=== PATIENT | male | born 1950 | race Caucasian/White ===

== ENCOUNTER 2017-07-21 16:40 | Emergency (ER) | payer MEDICARE, BC ==
--- NOTE | 2017-07-21 18:45 | US ---
Right lower extremity deep venous ultrasound: Duplex and color flow imaging was obtained of the right common femoral, proximal greater saphenous, superficial femoral, popliteal, posterior tibial and peroneal veins. Findings: Slight subcutaneous edema is noted within the right ankle. There is an elongated heterogeneous area within the calf slightly distal to the knee. This most likely represents a small intramuscular hematoma. Deep veins show normal phasic flow, augmentation and compression. Impression: 1. No evidence of deep venous thrombosis within the right lower extremity. 2. Elongated heterogeneous area within the upper calf most likely representing intramuscular hematoma. If this does not correlate clinically, MRI could be considered. 3. Mild subcutaneous edema within the ankle. Diagnostic code #3
--- NOTE | 2017-07-21 18:48 | EDM.PDOC ---
ED HPI GENERAL MEDICAL PROBLEM - General Chief Complaint: Lower Extremity Injury/Pain Stated Complaint: RIGHT LEG SWELLING Time Seen by Provider: 07/21/17 16:59 Source of Information: Reports: Patient, RN Notes Reviewed - History of Present Illness INITIAL COMMENTS - FREE TEXT/NARRATIVE: 66-year-old male presents with right lower leg swelling and discomfort. He fell injuring his right knee several weeks ago. He then had a trip to [place] [place] [facility] for a wedding. He did follow-up at the clinic after getting back from [facility], had x- rays of his knee about a week ago which did not show any fracture. He was given a knee brace. The pain is gotten better but now he has quite severe swelling of the lower leg, pain posterior calf with ambulation. He states the swellingstill was much worse yesterday and the day before but still quite marketed. 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: Reports: Other (see below) Other 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: aspirin daily Right Leg Pain Score (Numeric/FACES): 8 - Related Data Allergies Allergy/AdvReac Type Severity Reaction Status Date / Time bupropion [From Wellbutrin] Allergy Hives Verified 07/21/17 16:54 Home Meds: Home Meds Albuterol [Ventolin HFA] 2 puff INH BID 07/21/17 [History] Aspirin [Low Dose Aspirin EC] 81 mg PO DAILY 07/21/17 [History] Cholecalciferol (Vitamin D3) [Vitamin D3] 2,000 unit PO DAILY 07/21/17 [History] Clopidogrel Bisulfate [Plavix] 75 mg PO DAILY 07/21/17 [History] Metoprolol Succinate 50 mg PO DAILY 07/21/17 [History] Protandim. 1 tab PO DAILY 07/21/17 [History] Rosuvastatin [Crestor] 40 mg PO DAILY 07/21/17 [History] Ubidecarenone [Co Q-10] 200 mg PO DAILY 07/21/17 [History] Past Medical History - Past Health History Medical/Surgical History: Denies Medical/Surgical History Cardiovascular History: Reports: High Cholesterol, Hypertension, [place], Stents Respiratory History: Reports: Other (See Below) Other Respiratory History: emphysema Genitourinary History: Reports: Renal Calculus Musculoskeletal History: Reports: Other (See Below) Other Musculoskeletal History: back surgery for stenosis Oncologic (Cancer) History: Reports: Other (See Below) Other Oncologic History: kidney cancer withh 2/3 of right kidney removed - Past Surgical History Cardiovascular Surgical History: Reports: Coronary Artery Stent Social & Family History - Tobacco Use Smoking Status *Q: Current Every Day Smoker Years of Tobacco use: 40 Packs/Tins Daily: 1 Used Tobacco, but Quit: No Second Hand Smoke Exposure: No - Caffeine Use Caffeine Use: Reports: Soda - Alcohol Use Days Per Week of Alcohol Use: 1 Number of Drinks Per Day: 0 Total Drinks Per Week: 0 - Recreational Drug Use Recreational Drug Use: No - Living Situation & Occupation Living situation: Reports: Occupation: Employed Review of Systems - Review of Systems Review Of Systems: See Below Mouth/Throat: Reports: No Symptoms Respiratory: Denies: Shortness of Breath, Pleuritic Chest Pain Cardiovascular: Denies: Chest Pain GI/Abdominal: Denies: Abdominal Pain Musculoskeletal: Reports: Leg Pain (Pain right posterior calf muscle area), Other (Severe swelling of right lower leg 3 days ago now somewhat better but still swollen) Skin: Denies: Bruising, Erythema Neurological: Denies: Numbness, Tingling, Weakness ED EXAM, GENERAL - Physical Exam Exam: See Below General Appearance: Alert, No Apparent Distress Head: Atraumatic Neck: Supple Respiratory/Chest: No Respiratory Distress, Lungs Clear, Normal Breath Sounds Cardiovascular: Regular Rate, Rhythm Extremities: Pedal Edema (Moderate swelling of right lower leg), Leg Pain ( There is mild to moderate tenderness of the right posterior calf and also posterior to the right knee), Other (Right knee is without swelling or tenderness at this time, no effusion). No: Increased Warmth, Redness Neurological: Alert, No Motor/Sensory Deficits Course - Vital Signs Last Recorded V/S: Last Vital Signs Temp 98.7 F 07/21/17 16:46 Pulse 74 07/21/17 16:46 Resp 20 07/21/17 16:46 BP 189/97 H 07/21/17 16:46 Pulse Ox 99 07/21/17 16:46 - Re-Assessments/Exams Free Text/Narrative Re-Assessment/Exam: 07/21/17 19:22, ultrasound the leg is negative for DVT, there is fluid present, see Radiology report for details. Departure - Departure Time of Disposition: 19:15 Disposition: Home, Self-Care 01 Condition: Fair Clinical Impression: Leg edema, right - Discharge Information Instructions: Edema, [id number] Referrals: Em Meadows PA-C [Primary Care Provider] - Forms: ED Department Discharge Additional Instructions: Keven wrap right leg, elevate as much as possible over the next 3-4 days with leg well above your waist as discussed until swelling has completely resolved, you may even work with some intermittent ice packs tonight and tomorrow evening as able. Also exercise calf muscle when your leg is elevated as discussed to help work the fluid down out of your leg. Follow-up clinic if not much better within 3-4 days as expected, return to ED as needed if symptoms worsening in any way.
== END 2017-07-21 19:20 | disposition home or self-care (01) ==
LOC: JD.ED 16:40
DX: R22.41 Localized swelling, mass and lump, right lower limb (principal); E78.00 Pure hypercholesterolemia, unspecified; I10 Essential (primary) hypertension; I25.2 Old myocardial infarction; F17.210 Nicotine dependence, cigarettes, uncomplicated; Z88.8 Allergy status to other drugs, medicaments and biological substances; Z79.82 Long term (current) use of aspirin; Z79.899 Other long term (current) drug therapy
CPT/HCPCS: 93971-26-RT; 93971-RT; 99283; 99284-25

== ENCOUNTER 2019-12-06 07:00 | Day surgery (SDC) | payer MEDICARE, BC ==
[~2019-12-06 07:00] MED LIST: Albuterol 0.083% 2.5 MG/3 ML Neb Soln NEB SCH; Lactated Ringers 1,000 ML IV SCH; Lidocaine 1%/Sod Bicarbonate in NS 8.4% 1 ML Syringe IDERM PRN; Sodium Chloride 0.9% 10 ML Syringe FLUSH PRN
[2019-12-06] MEDS ORDERED: Propofol 200 MG/20 ML SDV ONE (07:22)
[2019-12-06] MEDS ORDERED: Lidocaine 1% 4 ML ONE (07:22)
[2019-12-06] MEDS ORDERED: Midazolam 1 MG/ML 2 ML SDV ONE (07:22)
[2019-12-06] MEDS ORDERED: fentaNYL 100 MCG/2 ML SDV ONE (07:22)
--- NOTE | 2019-12-06 07:42 | PCM.PREANE ---
Preanesthetic Assessment - Procedure Proposed Procedure: screening colonoscopy - Anesthesia/Transfusion/Family Hx Anesthesia History: No Prior Anesthesia Family History of Anesthesia Reaction: No Transfusion History: No Prior Transfusion(s) - Review of Systems General: No Symptoms Pulmonary: No Symptoms Cardiovascular: No Symptoms, Other (stents- 2006) Gastrointestinal: No Symptoms Neurological: No Symptoms Other: Reports: None, Diabetes (on the verge- takes a pill) - Physical Assessment NPO Status Date: 12/06/19 (finished prep) NPO Status Time: 04:00 Vital Signs: Last Vital Signs Temp 97.1 F 12/06/19 07:00 Pulse 58 L 12/06/19 07:00 Resp 16 12/06/19 07:00 BP 180/65 H 12/06/19 07:00 Pulse Ox 95 12/06/19 07:00 Height: 5 ft 11 in Weight: 99 kg ASA Class: 3 Mental Status: Alert & Oriented x3 Airway Class: Mallampati = 1 Dentition: Reports: Dentures (top and bottom) Thyro-Mental Finger Breadths: 3 Mouth Opening Finger Breadths: 3 ROM/Head Extension: Full Lungs: Clear to Auscultation, Normal Respiratory Effort Cardiovascular: Regular Rate, Regular Rhythm - Allergies Allergies/Adverse Reactions: Allergies Allergy/AdvReac Type Severity Reaction Status Date / Time bupropion [From Wellbutrin] Allergy Hives Verified 12/06/19 07:33 - Blood Blood Available: No - Anesthesia Plan Beta Isai: Metoprolol Med Last Dose Date: 12/06/19 Med Last Dose Time: 06:00 - Acknowledgements Anesthesia Type Planned: MAC Pt an Appropriate Candidate for the Planned Anesthesia: Yes Alternatives and Risks of Anesthesia Discussed w Pt/Guardian: Yes Pt/Guardian Understands and Agrees with Anesthesia Plan: Yes PreAnesthesia Questionnaire - Past Health History Medical/Surgical History: Denies Medical/Surgical History HEENT History: Reports: Sinusitis, Other (See Below) Other HEENT History: wears glasses, has dentures Cardiovascular History: Reports: CAD, High Cholesterol, Hypertension, [place], Stents, Other (See Below) Other Cardiovascular History: peripheral edema Respiratory History: Reports: Bronchitis, Recurrent, COPD, Pneumonia, Recurrent, Other (See Below) Other Respiratory History: emphysema Gastrointestinal History: Reports: None Genitourinary History: Reports: BPH, Renal Calculus, Other (See Below) Other Genitourinary History: erectile dysfunction, renal cell carcimona, hematuria, proteinuria, right renal mass, kidney stones RIVET HEATER History: Reports: None Musculoskeletal History: Reports: Arthritis, Back Pain, Chronic, Other (See Below) Other Musculoskeletal History: bone cyst, knee pain, radiculopathy, left elbow contusion Neurological History: Reports: None Psychiatric History: Reports: None Endocrine/Metabolic History: Reports: Other (See Below) Other Endocrine/Metabolic History: pre diabetic Hematologic History: Reports: None Immunologic History: Reports: None Oncologic (Cancer) History: Reports: Basal Cell Carcinoma, Other (See Below) Other Oncologic History: kidney cancer withh 2/3 of right kidney removed Dermatologic History: Reports: Other (See Below) Other Dermatologic History: basal cell carcinoma to ear - Past Surgical History Head Surgeries/Procedures: Reports: None Cardiovascular Surgical History: Reports: Coronary Artery Stent Respiratory Surgical History: Reports: None GI Surgical History: Reports: None Female Surgical History: Reports: None Male Surgical History: Reports: Other (See Below) Other Male Surgeries/Procedures: kidney surgery Neurological Surgical History: Reports: Lumbar Spine Oncologic Surgical History: Reports: None - SUBSTANCE USE Smoking Status *Q: Current Every Day Smoker Tobacco Use Within Last Twelve Months: Cigarettes Second Hand Smoke Exposure: Yes Days Per Week of Alcohol Use: 0 Recreational Drug Use History: No - HOME MEDS Home Medications: Home Meds Albuterol [Ventolin HFA] 2 puff INH Q6H PRN 07/21/17 [History] Aspirin [Low Dose Aspirin EC] 81 mg PO DAILY 07/21/17 [History] Metoprolol Succinate 50 mg PO DAILY 07/21/17 [History] Ubidecarenone [Co Q-10] 200 mg PO DAILY 07/21/17 [History] Cyanocobalamin (Vitamin B-12) [Vitamin B-12] 1,000 mcg PO DAILY 12/05/19 [History] Fluticasone/Umeclidin/Vilanter [Trelegy Ellipta 100-62.5-25] 1 puff INH DAILY 12/05/19 [History] Multivitamin [Daily Multiple Vitamin] 1 tab PO DAILY 12/05/19 [History] Nitroglycerin [Nitrostat] 0.4 mg PO ASDIRECTED PRN 12/05/19 [History] Sildenafil Citrate 20 mg PO ASDIRECTED PRN 12/05/19 [History] Tamsulosin HCl [Flomax] 0.4 mg PO DAILY 12/05/19 [History] atorvaSTATin [Lipitor] 40 mg PO DAILY 12/05/19 [History] metFORMIN HCl [Metformin HCl ER] 500 mg PO DAILY 12/05/19 [History] - CURRENT (IN HOUSE) MEDS Current Meds: Current Medications Albuterol (Proventil Neb Soln) 2.5 mg NEB ONETIME TRI Stop: 12/06/19 14:00 Lactated Ringer's (Ringers, Lactated) 1,000 mls @ 125 mls/hr IV ASDIRECTED TRI Stop: 12/06/19 23:00 Lidocaine/Sodium Bicarbonate (Buffered Lidocaine 1% In Ns 8.4%) 0.25 ml IDERM ONETIME PRN PRN Reason: Prior to IV Start Stop: 12/06/19 23:00 Sodium Chloride (Saline Flush) 10 ml FLUSH ASDIRECTED PRN PRN Reason: Keep Vein Open Stop: 12/06/19 23:00 Discontinued Medications Fentanyl (Sublimaze) Confirm Administered Dose 100 mcg .ROUTE .STK-MED ONE Stop: 12/06/19 07:23 Lidocaine HCl (Xylocaine-Mpf 1%) Confirm Administered Dose 4 mls @ as directed .ROUTE .STK-MED ONE Stop: 12/06/19 07:23 Midazolam HCl (Versed 1 Mg/Ml) Confirm Administered Dose 2 mg .ROUTE .STK-MED ONE Stop: 12/06/19 07:23 Propofol (Diprivan 20 Ml) Confirm Administered Dose 400 mg .ROUTE .STK-MED ONE Stop: 12/06/19 07:23
--- NOTE | 2019-12-06 09:07 | PCM.PRNOTE ---
- Free Text/Narrative Note: Date: 12/06/2019 Procedure: screening colonoscopy Endoscopist: Rex Holcomb MD Findings: Ileocecal valve and appendiceal orifice visualized. Prep was good. 5 small polyps were identified. Detailed Report: The patient was taken to the endoscopy suite and placed in left lateral decubitus position. Time out was performed and monitored anesthesia care was initiated. The anus appeared normal. Digital rectal exam was unremarkable; hypertrophied anal papillae were noted. The lubricated colonoscope was then inserted and advanced all the way to the cecum. The ileocecal valve and appendiceal orifice were visualized. The prep was good. On slow withdrawal of the scope, mucosal surfaces were carefully inspected. A pedunculated polyp measuring less than 1 cm was seen adjacent to the appendiceal orifice; this was removed with the hot snare. A smaller, round sessile polyp was noted near the hepatic flexure. This was biopsied piecemeal with forceps and the remnant site fulgurated. The third lesion was a slightly raised prominence on a mucosal fold; I'm not sure this was anything but we biopsied it and fulgurated the base. A larger, 1 cm pedunculated polyp was noted just a few cm away from the previous biopsy site. This was taken with the snare. The polyp was too big to suction up, so it was withdrawn with the scope for retrieval. Mild diverticular disease was scattered throughout the colon. On retroflexion of the scope in the rectum, a < 5mm polyp was noted in the distal rectum, which was successfully biopsied with the snare. Air was then evacuated prior to removal of the scope. The patient tolerated the procedure well.
--- NOTE | 2019-12-06 09:08 | PCM48HPAN ---
Post Anesthesia Note - EVALUATION WITHIN 48HRS OF ANESTHETIC Vital Signs in Normal Range: Yes Patient Participated in Evaluation: Yes Respiratory Function Stable: Yes Airway Patent: Yes Cardiovascular Function Stable: Yes Hydration Status Stable: Yes Pain Control Satisfactory: Yes Nausea and Vomiting Control Satisfactory: Yes Mental Status Recovered: Yes Vital Signs: Last Vital Signs Temp 97.1 F 12/06/19 07:00 Pulse 58 L 12/06/19 07:00 Resp 16 12/06/19 07:00 BP 180/65 H 12/06/19 07:00 Pulse Ox 95 12/06/19 07:00 0902 131/60 57 20 97.5 945
== END 2019-12-06 09:50 | disposition home or self-care (01) ==
LOC: JD.SDS 07:00
PROVIDERS: ATTEND Surgery
DX: Z12.11 Encounter for screening for malignant neoplasm of colon (principal); D12.0 Benign neoplasm of cecum; D12.3 Benign neoplasm of transverse colon; D12.4 Benign neoplasm of descending colon; K62.1 Rectal polyp; N40.0 Benign prostatic hyperplasia without lower urinary tract symptoms; K57.30 Diverticulosis of large intestine without perforation or abscess without bleeding; I25.10 Atherosclerotic heart disease of native coronary artery without angina pectoris; J43.9 Emphysema, unspecified; I10 Essential (primary) hypertension; F17.210 Nicotine dependence, cigarettes, uncomplicated; E78.00 Pure hypercholesterolemia, unspecified; E78.1 Pure hyperglyceridemia; Z88.8 Allergy status to other drugs, medicaments and biological substances; Z79.82 Long term (current) use of aspirin; Z79.899 Other long term (current) drug therapy
CPT/HCPCS: 45380; 45385; 82962; 94640; J2001; J2250; J2704; J3010; J7120; 00812